=== PATIENT | male | born 1980 | race Caucasian/White ===

== ENCOUNTER 2019-11-28 13:46 | Outpatient (CLI) | payer BC, SELFPAY ==
--- NOTE | ~2019-11-28 | NM_ITS ---
EXAMINATION: ELLEN nielsen renal scan DATE: 11/28/2019 15:34 INDICATION: Left hydronephrosis TECHNIQUE: 7.5 mCi Tc-99m MAG3 was administered IV. 40 mg furosemide was administered IV immediately afterward. The patient was scanned in the supine position. A posterior abdominal radionuclide angiog mona was obtained. A subsequent time course of static images of the kidneys, ureters, and bladder was obtained. COMPARISON: None FINDINGS: The posterior abdominal radionuclide angiogram and sequential static images show normal size, positio n, and morphology of the kidneys. Peak renal parenchymal uptake was 3.4 min in left kidney and 2.4 mi n in right kidney (normal peak 3-5 minutes). The relative early renal uptake was 59% on the right an d 41% on the left (<40% is abnormal). No abnormalities of the ureters or bladder are seen. T1/2 for clearance of activity from the left kidney and proximal collecting system was 6 minutes. T1/2 for clearance of activity from the right kidney and proximal collecting system was 7 minutes. Notes on interpretation: T1/2 <10 minutes is normal, 10-15 minutes is low grade obstruction of questi onable clinical significance, 15-20 minutes is partial obstruction that is likely clinically signific ant, >20 minutes is high grade obstruction. Note that false positives may be seen with supine positio hari, dehydration, severely dilated nonobstructed kidney, atonic collecting system, poor renal functi on, and chronic furosemide use. IMPRESSION: 1. Borderline decreased left renal function which contributes 41% to total renal function. 2. No delay in contrast clearance from either kidney to suggest fixed obstruction. Reviewed, dictated and finalized at location A. T [employer] IMPRESSION: 1. Borderline decreased left renal function which contributes 41% to total tyrese al function. 2. No delay in contrast clearance from either kidney to suggest fixed obstruct ion.
== END 2019-11-28 13:47 | disposition home or self-care (01) ==
PROVIDERS: PCP Internal Medicine; Visit Provider Urology
DX: N13.30 Unspecified hydronephrosis (principal)
CPT/HCPCS: 78708; A9562; J1940

== ENCOUNTER 2020-09-19 07:33 | Outpatient (CLI) | payer OTHER, BC, SELFPAY ==
--- NOTE | 2020-11-03 11:35 | WPDHOMESLEEP ---
Sleep Study - Home Unattended Date of Study: 09/19/20 Ordering Provider: Fátima Mensah MD Interpreting Physician: Fátima Mensah MD Home Sleep Study Type: Watch PAT Height: 1.83 m Weight: 93.44 kg Body Mass Index: 27.9 Neck Circumference (inches): 17.5 [place]: 18 Reason for Sleep Study hypersomnia Sleep History Chad Eric is a 40-year-old man with a history of hypersomnia. No matter how much sleep he gets he still feels tired. He would nap throughout the day if he had the chance. His mental capacity feels cloudy about mid day, his concentration is difficult to maintain, and he notices himself forgetting what he is doing. he often has to regroup to remember what his next action is supposed to be. He had a prior study through the [facility]. It was a home sleep test, he was told was normal but he never actually got the results from it. he frequently snores and it is loud enough that others complain about it. He occasionally awakens at night with heartburn, belching or coughing. He occasionally awakens from sleep feeling short of breath. He constantly has trouble sleeping with a cold. He never wakes up gasping for breath at night and never has breathing problems at night reported to him by others. He occasionally sweats excessively at night and occasionally notices his heart pounding or beating irregularly at night. He frequently falls asleep during the day, rarely involuntarily but occasionally does happen while driving. He does not fall asleep while exerting physical effort. He occasionally has loss of muscle tone was strong emotion. He frequently has daytime difficulties due to his excessive sleepiness. He is a database security administrator. He frequently feels paralyzed on waking or falling asleep and frequently has vivid dreamlike scenes upon awakening or falling asleep. He is never afraid to go to sleep. he occasionally has nightmares. He frequently remembers his dreams. He constantly has racing thoughts through his mind. He occasionally feels sad or depressed. He frequently has anxiety. He frequently has muscular tension, frequently notices parts of his body jerking and he frequently kicks at night. He constantly has crawling and aching feelings in his legs. He frequently has leg pain during the night. He occasionally has morning jaw pain. he never grind his teeth during sleep. He frequently is bothered by pain during the day, rarely is awakened by pain at night. He frequently wakes up feeling stiff in the morning with sore or achy muscles. He constantly wakes up with pain in the neck and spine. He has headaches, dizziness, fatigue, memory problems and concentration difficulties. Normal bedtime is 9:00 p.m. taking 1 or 1-1/2 hours to fall asleep. He typically wakes up 2-3 times at night. he tries to repositioning get comfortable and return to sleep as soon as possible. He wakes the morning at 6:00 a.m.. On the weekends he gets recovery sleep, going to bed between 8 and 9:00 p.m. and waking at 8 in the morning. He estimates 8-9 hours of sleep at night but has a limited socially live because he has either sleeping, working or resting at home most of the time. He does take naps if given the chance of specially on the weekends. A short 10-15 minute nap is not refreshing. He is usually drowsy in the morning for 3 hours or longer. Habits: Never smoked tobacco. Caffeine 1 serving in the morning. Alcohol 1 or 2 servings twice a week. No recreational drugs. PMH: anxiety, depression, PTSD, indigestion, ulcerative colitis, ureteral is seal, numbness and tingling is in the hands and feet, cold extremities, poor circulation, joint pain, lower leg pain and 2 stents in the left kidney PMFSH Past Medical History Medical History Anxiety Backache Calculus of kidney Cervicalgia Essential hypertension Headache Hypersomnia Irritability and anger Low back pain Major depressive disorder, rec
[2020-11-03 12:02] VITALS: BMI 27.9
== END 2020-09-19 07:34 | disposition home or self-care (01) ==
LOC: ANHCSM 07:34
PROVIDERS: PCP Internal Medicine; Visit Provider Internal Medicine Critical Care Medicine
DX: G47.33 Obstructive sleep apnea (adult) (pediatric) (principal)
CPT/HCPCS: 95800

== ENCOUNTER 2022-04-02 12:48 | Outpatient (CLI) | payer BC, SELFPAY ==
--- NOTE | ~2022-04-02 | NM_ITS ---
EXAMINATION: ELLEN nielsen renal scan DATE: 04/02/2022 13:51 INDICATION: Left hydronephrosis TECHNIQUE: 8.3 mCi Tc-99m MAG3 was administered IV. 40 mg furosemide was administered IV immediately afterward. The patient was scanned in the supine position. A posterior abdominal radionuclide angiog mona was obtained. A subsequent time course of static images of the kidneys, ureters, and bladder was obtained. COMPARISON: 11/28/2019 FINDINGS: The posterior abdominal radionuclide angiogram and sequential static images show normal size, positio n, and morphology of the kidneys. Peak renal parenchymal uptake was 4.4 min in left kidney and 3.4 mi n in right kidney (normal peak 3-5 minutes). The relative early renal uptake was 36% on the left and 64% on the right (<40% is abnormal). No abnormalities of the ureters or bladder are seen. T1/2 for clearance of activity from the left kidney and proximal collecting system was 6 minutes. T1/2 for clearance of activity from the right kidney and proximal collecting system was 6 minutes. Notes on interpretation: T1/2 <10 minutes is normal, 10-15 minutes is low grade obstruction of questi onable clinical significance, 15-20 minutes is partial obstruction that is likely clinically signific ant, >20 minutes is high grade obstruction. Note that false positives may be seen with supine positio hari, dehydration, severely dilated nonobstructed kidney, atonic collecting system, poor renal functi on, and chronic furosemide use. IMPRESSION: 1. Decreased left renal function which contributes 36% of total renal function. 2. No delay in contrast clearance from either kidney to suggest fixed obstruction. Reviewed, dictated and finalized at location A. IMPRESSION: 1. Decreased left renal function which contributes 36% of total renal function . 2. No delay in contrast clearance from either kidney to suggest fixed obstruct ion.
== END 2022-04-02 12:49 | disposition home or self-care (01) ==
PROVIDERS: PCP Physician Assistant; Visit Provider Urology
DX: N13.30 Unspecified hydronephrosis (principal)
CPT/HCPCS: 78708; A9562; J1940

== ENCOUNTER 2022-06-09 17:12 | Emergency (ER) | payer BC, SELFPAY ==
[2022-06-09 17:26] VITALS: BP 136/78; PULSE 67; RESP 18; TEMP 36.9; O2SAT 100
--- NOTE | 2022-06-09 17:38 | ED.URI ---
HPI - URI/Sore Throat General Chief Complaint: Upper Respiratory Infection Stated Complaint: flu like symptoms Time Seen by Provider: 06/09/22 17:42 Source: patient and RN notes reviewed Mode of arrival: ambulatory Limitations: no limitations History of Present Illness HPI Narrative: 42 y/o male presented for c/o runny nose, cough productive, sinus congestion with post nasal drainage, headache, body aches, muffled hearing; onset yesterday. Took 2 home covid tests today, they were negative. States strep throat went through house about 10 days ago. Denies shortness of breath, wheezing, abdominal pain, vomiting, fever. MD elicited complaint: cough Related Data Home Medications Medication Instructions Recorded Confirmed bupropion HCl 300 mg 24 hr tablet, 300 mg PO QAM 11/12/20 11/14/21 extended release propranolol 60 mg capsule,24 60 mg PO DAILY 11/12/20 11/14/21 hr,extended release sertraline 100 mg tablet 50 mg PO DAILY 05/20/21 11/14/21 Allergies Allergy/AdvReac Type Severity Reaction Status Date / Time No Known Allergies Allergy Verified 06/09/22 17:41 Review of Systems Review of Systems: ROS negative except as in HPI PMFSH Past Medical History Medical History Anxiety Backache Calculus of kidney Cervicalgia Essential hypertension Headache Hypersomnia Irritability and anger Low back pain Major depressive disorder, recurrent, moderate Myopia Other hemorrhoids Other hydronephrosis Other insomnia Pain in left shoulder Personal history of colonic polyps Post-traumatic stress disorder, chronic Unspecified mood [affective] disorder Family History Family History Grandparent Diabetes mellitus Social History Social History Smoking status: Never smoker Second hand tobacco smoke exposure: No Alcohol intake: current Alcohol use details: One or 2 alcoholic beverages twice per week Substance use: never Exam Narrative: GENERAL: Ill-appearing, nontoxic EYES: conjunctivae clear ENT: Mucous membranes moist. TM pearly vivas with normal light reflex bilaterally; no tragal tenderness. Oropharynx erythematous without lesions or exudate, no drooling, no hoarseness, no trismus, uvula midline. NECK: Supple. No lymphadenopathy CHEST: Clear to auscultation, breath sounds equal. HEART: Regular rate and rhythm. No murmur heard. SKIN: Warm, dry, no rash. NEURO: Alert and oriented x3. PSYCH: Normal mood and affect Course Course Emergency Course: Patient is aware of diagnosis, understands and agrees to treatment plan. Anticipatory guidance given. Patient agrees to follow-up as directed and is aware of reasons to seek care at the emergency department. Portions of this record may have been created with voice recognition software Level of Care: Express Care Visit Vital Signs Vital signs: Vital Signs Temperature 98.5 F 06/09/22 17:26 Pulse Rate 67 06/09/22 17:26 Respiratory Rate 18 06/09/22 17:26 Blood Pressure 136/78 06/09/22 17:26 Pulse Oximetry 100 06/09/22 17:26 Oxygen Delivery Room Air 06/09/22 17:26 Temperature 98.5 F 06/09/22 17:26 Pulse Rate 67 06/09/22 17:26 Respiratory Rate 18 06/09/22 17:26 Blood Pressure 136/78 06/09/22 17:26 Pulse Oximetry 100 06/09/22 17:26 Oxygen Delivery Room Air 06/09/22 17:26 reviewed MDM - URI/Sore Throat MDM Narrative Medical decision making narrative: Negative covid flu and strep results reviewed with pt.Aware we will send strep for culture. Advised supportive measures and signs/symptoms to go to the ER. Pt is appropriate for outpt treatment and f/u. Differential Diagnosis Differential diagnosis: Likely upper respiratory infection, sinusitis and viral infection Lab Data Labs: Influenza A Screen Negative
== END 2022-06-09 18:20 | disposition home or self-care (01) ==
PROVIDERS: Emergency Provider Nurse Practitioner Family; PCP Physician Assistant
DX: B34.9 Viral infection, unspecified (principal); Z20.822 Contact with and (suspected) exposure to COVID-19; I10 Essential (primary) hypertension; F41.9 Anxiety disorder, unspecified
CPT/HCPCS: 87081; 87426; 87804; 87880; 99213; C9803; G0463

== ENCOUNTER → 2022-06-11 02:16 | Outpatient (CLI) | payer BC, SELFPAY ==
[2022-06-11 10:43] LABS: SARS-CoV-2 RNA PCR Negative
== END ==
PROVIDERS: PCP Physician Assistant; Visit Provider Physician Assistant
DX: R68.89 Other general symptoms and signs (principal); Z20.822 Contact with and (suspected) exposure to COVID-19
CPT/HCPCS: C9803; U0003; U0005

== ENCOUNTER 2023-02-25 09:01 | Outpatient (CLI) | payer BC, SELFPAY ==
--- NOTE | ~2023-02-25 | NM_ITS ---
EXAMINATION: ELLEN nielsen renal scan DATE: 02/25/2023 11:29 INDICATION: Left hydronephrosis TECHNIQUE: 8 mCi Tc-99m MAG3 was administered IV. 40 mg furosemide was administered IV immediately a fterward. The patient was scanned in the supine position. A posterior abdominal radionuclide angiogra m was obtained. A subsequent time course of static images of the kidneys, ureters, and bladder was ob tained. COMPARISON: 04/02/2022 FINDINGS: The posterior abdominal radionuclide angiogram and sequential static images show normal size, positio n, and morphology of the kidneys. Peak renal parenchymal uptake was 3.5 min in left kidney and 2.5 mi n in right kidney (normal peak 3-5 minutes). The relative early renal uptake was 40.3% on the left a nd 59.7% on the right (<40% is abnormal). No abnormalities of the ureters or bladder are seen. T1/2 for clearance of activity from the left kidney and proximal collecting system was 6 minutes. T1/2 for clearance of activity from the right kidney and proximal collecting system was 9 minutes. Notes on interpretation: T1/2 <10 minutes is normal, 10-15 minutes is low grade obstruction of questi onable clinical significance, 15-20 minutes is partial obstruction that is likely clinically signific ant, >20 minutes is high grade obstruction. Note that false positives may be seen with supine positio hari, dehydration, severely dilated nonobstructed kidney, atonic collecting system, poor renal functi on, and chronic furosemide use. IMPRESSION: 1. Interval improvement in now only borderline asymmetry to renal function with left kidney previous ly contributing 36%, now slightly greater than 40% to total renal function. 2. No delay in contrast clearance from either kidney to suggest fixed obstruction. Reviewed, dictated and finalized at location A. IMPRESSION: 1. Interval improvement in now only borderline asymmetry to renal function wit h left kidney previously contributing 36%, now slightly greater than 40% to tot al renal function. 2. No delay in contrast clearance from either kidney to suggest fixed obstruct ion.
== END 2023-02-25 09:02 | disposition home or self-care (01) ==
PROVIDERS: PCP Physician Assistant; Visit Provider Urology
DX: N13.30 Unspecified hydronephrosis (principal)
CPT/HCPCS: 78708; A9562; J1940

== ENCOUNTER 2023-05-16 16:13 | Emergency (ER) | payer BC, SELFPAY ==
[2023-05-16 16:30] VITALS: BP 134/92; PULSE 66; RESP 18; TEMP 36.4; O2SAT 99
--- NOTE | 2023-05-16 16:31 | ED.URI ---
HPI - URI/Sore Throat General Chief Complaint: Upper Respiratory Infection Stated Complaint: sorethroat Time Seen by Provider: 05/16/23 16:47 Source: patient and RN notes reviewed Mode of arrival: ambulatory Limitations: no limitations History of Present Illness HPI Narrative: 43-year-old male presents with concern for 7 day history of sore throat. He reports he began having a runny nose several days ago. He reports occasional cough and body aches. He denies fever, chills, sweats. He denies any [id number] medications for his symptoms MD elicited complaint: sore throat Related Data Home Medications Medication Instructions Recorded Confirmed bupropion HCl 300 mg 24 hr tablet, 300 mg PO QAM 11/12/20 05/16/23 extended release propranolol 60 mg capsule,24 60 mg PO DAILY 11/12/20 05/16/23 hr,extended release sertraline 100 mg tablet 50 mg PO DAILY 05/20/21 05/16/23 Allergies Allergy/AdvReac Type Severity Reaction Status Date / Time No Known Allergies Allergy Verified 05/16/23 16:42 Review of Systems Review of Systems: CONSTITUTIONAL: Reports malaise, chills, sweats, or fever. EYES: Denies visual changes, redness, or discharge. ENT: Reports congestion, sinus pain, otalgia. Reports rhinorrhea and sore throat. CARDIOVASCULAR: Denies chest pain, palpitations, or edema. RESPIRATORY: Reports occasional cough. Denies dyspnea. GASTROINTESTINAL: Denies abdominal pain, nausea, vomiting, diarrhea SKIN: Denies rash or itching. MUSCULOSKELETAL: Reports myalgia. NEUROLOGIC: Denies headache. All systems reviewed & are unremarkable except as noted in HPI and below PMFSH Past Medical History Medical History Anxiety Backache Calculus of kidney Cervicalgia Essential hypertension Headache Hypersomnia Irritability and anger Low back pain Major depressive disorder, recurrent, moderate Myopia Other hemorrhoids Other hydronephrosis Other insomnia Pain in left shoulder Personal history of colonic polyps Post-traumatic stress disorder, chronic Unspecified mood [affective] disorder Family History Family History Grandparent Diabetes mellitus Social History Social History Smoking status: Never smoker Second hand tobacco smoke exposure: No Alcohol intake: current Alcohol use details: One or 2 alcoholic beverages twice per week Substance use: never Lack of Transportation: No Lack of Food: Never True Current Housing: I Have Housing Concerned About Future Housing: No Difficulty Paying Gas/Electric Bills: No Difficulty Paying for Meds: No Currently Unemployed: No Education: Master's Degree or Higher Difficulty w/ Childcare or Family Care: No Comments At time of signature, agree with nursing past medical, surgical, social and family history. There is no relevant family history pertinent to the presenting complaint Exam Narrative: GENERAL: Well-appearing, well-nourished, and in no acute distress. HEAD: Normocephalic EYES: PERRLA, conjunctivae clear ENT: Nares clear, turbinates edematous and erythematous, clear discharge. Mucous membranes moist. TM pearly vivas with dull light reflex bilaterally; no tragal tenderness. Oropharynx not erythematous without lesions. Tonsils not enlarged and without exudate, no drooling, no hoarseness, no trismus, uvula midline. NECK: Supple. No lymphadenopathy CHEST: Clear to auscultation, breath sounds equal. No wheezing, rhonchi, rales, or stridor. No respiratory distress, speaks in full sentences. HEART: Regular rate and rhythm. No murmur heard. SKIN: Warm, dry, no rash. NEURO: Alert and oriented x3. PSYCH: Normal mood and affect Course Course Emergency Course: Because patient has been sick for 1 week without improvement in symptoms, he would prefer to start antibiotic pending
== END 2023-05-16 17:08 | disposition home or self-care (01) ==
PROVIDERS: Emergency Provider Nurse Practitioner; PCP Physician Assistant
DX: J02.9 Acute pharyngitis, unspecified (principal); I10 Essential (primary) hypertension; F41.9 Anxiety disorder, unspecified
CPT/HCPCS: 87081; 87880; 99213; G0463